=== PATIENT | female | born 1960 | race Caucasian/White ===

== ENCOUNTER → 2021-06-25 17:20 | Outpatient (CLI) | payer MEDICAID, SELFPAY ==
[2021-06-25 18:15] LABS: Basophils # 0.1 K/mm3 (0-0.2); Basophils % 0.6 % (0.1-2.0); Eosinophils # 0.2 K/mm3 (0.0-0.4); Eosinophils % 1.2 % (0.1-12.0); Hematocrit 45.1 % (37.0-47.0); Hemoglobin 14.7 g/dL (12.2-16.2); Lymphocytes # 2.2 K/mm3 (0.7-4.5); Lymphocytes % 16.2 % (10-50); Mean Corpuscular HGB Conc 32.6 g/dL (31.8-35.4); Mean Corpuscular Hemoglobin 31.3 pg (27.0-31.2); Mean Corpuscular Volume 96.1 fl (81-99); Mean Platelet Volume 9.1 fl (7.4-10.4); Monocytes # 0.5 K/mm3 (0.1-1.0); Monocytes % 3.8 % (1.7-9.3); Neutrophils # 10.7 K/mm3 (1.8-7.8); Neutrophils % 78.2 % (37.0-80.0); Platelet Count 351 K/mm3 (142-424); Red Cell Distribution Width 13.2 % (11.5-17.5); White Blood Count 13.7 K/mm3 (4.8-10.8)
[2021-06-25 18:22] LABS: Alanine Aminotransferase 14 U/L (12-78); Albumin Level 3.5 g/dl (3.5-5.0); Albumin/Globulin Ratio 1.1 (1.1-1.8); Alkaline Phosphatase 95 U/L (38-126); Anion Gap 10.3 mEq/L (5-15); Aspartate Amino Transferase 26 U/L (14-36); Bilirubin,Total 0.3 mg/dl (0.2-1.3); Blood Urea Nitrogen 18 mg/dl (7-17); Calcium 8.8 mg/dl (8.4-10.2); Carbon Dioxide 28 mmol/L (22.0-30.0); Chloride 103 mmol/L (98-107); Chol/HDL Ratio 2.3 (1-3.5); Cholesterol 120 mg/dl (140-200); Estimated Glomerular Filt Rate 102 ml/min (>60); GFR (African American) 123 ML/MIN (>60); Globulin 3.2 g/dL (1.3-3.2); Glucose 69 mg/dl (74-100); HDL Cholesterol 52 mg/dl (40-60); Potassium 4.3 mmoL/L (3.5-5.1); Sodium 137 mmol/L (136-145); Total Protein,Serum 6.7 g/dl (6.3-8.2); Triglycerides 143 mg/dl (30-150); VLDL Cholesterol 29 mg/dL (0-40)
[2021-06-25 18:33] LABS: Direct LDL Cholesterol 45.73 mg/dL (100-129)
[2021-06-25 18:39] LABS: Free T4 (Free Thyroxine) 0.91 ng/dl (0.78-2.19)
[2021-06-25 18:40] LABS: 25-OH Vitamin D, Total 20.1 ng/mL (30-100)
[2021-06-25 18:53] LABS: Thyroid Stimulating Hormone 1.34 uIU/mL (0.465-4.68)
[2021-06-25 19:22] LABS: Erythrocyte Sedimentation Rate 7 mm/hr (0-30)
== END ==
PROVIDERS: Visit Provider Emergency Medicine
DX: R53.83 Other fatigue (principal); E55.9 Vitamin D deficiency, unspecified; Z79.899 Other long term (current) drug therapy
CPT/HCPCS: 80053; 80061; 82306; 84439; 84443; 85025; 85651

== ENCOUNTER → 2023-04-16 12:51 | Outpatient (CLI) | payer MEDICAID, SELFPAY ==
[2023-04-16 12:17] LABS: Basophils % 0.6 % (0.1-2.0); Eosinophils # 0.3 K/mm3 (0.0-0.4); Eosinophils % 4.3 % (0.1-12.0); Hematocrit 44.2 % (37.0-47.0); Hemoglobin 13.7 g/dL (12.2-16.2); Lymphocytes # 1.7 K/mm3 (0.7-4.5); Lymphocytes % 23.5 % (10-50); Mean Corpuscular Hemoglobin 27.7 pg (27.0-31.2); Mean Corpuscular Volume 89.2 fl (81-99); Mean Platelet Volume 8.2 fl (7.4-10.4); Monocytes # 0.4 K/mm3 (0.1-1.0); Monocytes % 5.1 % (1.7-9.3); Neutrophils # 4.9 K/mm3 (1.8-7.8); Neutrophils % 66.5 % (37.0-80.0); Platelet Count 293 K/mm3 (142-424); Red Blood Count 4.95 M/mm3 (4.20-5.40); Red Cell Distribution Width 14.1 % (11.5-17.5); White Blood Count 7.3 K/mm3 (4.8-10.8)
[2023-04-16 12:27] LABS: Alanine Aminotransferase 20 U/L (12-78); Albumin Level 3.9 g/dl (3.5-5.0); Albumin/Globulin Ratio 1.1 (1.1-1.8); Alkaline Phosphatase 120 U/L (38-126); Anion Gap 9.9 mEq/L (5-15); Aspartate Amino Transferase 22 U/L (14-36); Blood Urea Nitrogen 25 mg/dl (7-17); Calcium 9.5 mg/dl (8.4-10.2); Carbon Dioxide 31 mmol/L (22.0-30.0); Chloride 107 mmol/L (98-107); Chol/HDL Ratio 2.3 (1-3.5); Cholesterol 195 mg/dl (140-200); Estimated Glomerular Filt Rate 85 ml/min (>60); GFR (African American) 103 ML/MIN (>60); Globulin 3.4 g/dL (1.3-3.2); Glucose 129 mg/dl (74-100); HDL Cholesterol 84 mg/dl (40-60); Potassium 3.9 mmoL/L (3.5-5.1); Sodium 144 mmol/L (136-145); Total Protein,Serum 7.3 g/dl (6.3-8.2); Triglycerides 106 mg/dl (30-150); VLDL Cholesterol 21 mg/dL (0-40)
[2023-04-16 12:30] LABS: Bilirubin,Total 0.1 mg/dl (0.2-1.3)
[2023-04-16 12:40] LABS: Direct LDL Cholesterol 92.75 mg/dL (100-129)
[2023-04-16 12:42] LABS: 25-OH Vitamin D, Total 29.3 ng/mL (30-100)
[2023-04-16 12:43] LABS: T4 (Thyroxine) 8.2 ug/dl (5.53-11.0)
[2023-04-16 12:47] LABS: Barbiturates Screen,Urine Positive ng/ml (<200)
[2023-04-16 12:48] LABS: Benzodiazepines Screen,Urine Negative ng/ml (<200)
[2023-04-16 12:49] LABS: Cannabinoid Screen,Urine Negative ng/ml (<50); Cocaine Screen,Urine Negative ng/ml (<300)
[2023-04-16 12:50] LABS: Methadone Screen,Urine Negative ng/ml (<300); Opiate Screen,Urine Negative ng/ml (<300)
[2023-04-16 12:54] LABS: Phencyclidine Screen,Urine Negative ng/ml (<25)
[2023-04-16 12:57] LABS: Thyroid Stimulating Hormone 1.45 uIU/mL (0.465-4.68)
[2023-04-16 13:01] LABS: Amphetamine/Metha Screen,Urine Negative ng/ml (<1000)
== END ==
PROVIDERS: PCP Emergency Medicine; Visit Provider Emergency Medicine
DX: E78.5 Hyperlipidemia, unspecified (principal); G62.9 Polyneuropathy, unspecified; E66.9 Obesity, unspecified; Z68.30 Body mass index [BMI] 30.0-30.9, adult; Z79.899 Other long term (current) drug therapy; E55.9 Vitamin D deficiency, unspecified
CPT/HCPCS: 80053; 80061; 80305; 82306; 84436; 84443; 85025

== ENCOUNTER 2025-09-05 15:51 | Outpatient (CLI) | payer MEDICAID, SELFPAY ==
--- OUTSIDE RECORDS SUMMARY | 2025-08-25 11:00 | XMS_ITS | Encounter Summary ---
Author Organization [facility] ([place], [place], [place], [place], [place]) Address [address] [place] [address] Care Team Providers Care Taxonomist Name Role Phone Brynn Carney APRN Primary Care Provider [phone] Reason for Referral * Consultation (Routine) - Authorized Specialty Diagnoses / Procedures Referred By Lisandro jennings Referred To Contact Diagnoses Colostomy present (HCC) Drug-induced constipation Brynn Carney APRN [address] [place] [address] Phone: tel: fax: Sarah, Provider Not In The System, [place] [address] Referral ID Status Reason Start Date Expiration Date Visits Requested Visits Authorized [id number] Authorized Specialty Services Required 08/25/2026 1 1 * Consultation (Routine) - Authorized Specialty Diagnoses / Procedures Referred By Lisandro jennings Referred To Contact Diagnoses 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) Tremors of nervous system Brynn Carney APRN [address] [place] [id number] Phone: tel: fax: Sarah, Provider Not In The System, [place] [address] Referral ID Status Reason Start Date Expiration Date Visits Requested Visits Authorized [id number] Authorized Specialty Services Required 5 08/25/2026 1 1 * Consultation (Routine) - Authorized Specialty Diagnoses / Procedures Referred By Lisandro jennings Referred To Contact Diagnoses Muscle spasms of both lower extremities Chronic bilateral back pain, unspecified back location Brynn Carney APRN [address] [place] [address] Phone: tel: fax: [address] [address] Phone: tel: Referral ID Status Reason Start Date Expiration Date Visits Requested Visits Authorized [id number] Authorized Specialty Services Required 5 08/25/2026 1 1 * Consultation (Routine) - Authorized Specialty Diagnoses / Procedures Referred By Lisandro jennings Referred To Contact Diagnoses Anxiety and depression H/O borderline personality disorder Brynn Carney APRN [address] [place] [address] Phone: tel: fax: [address] [place] [address] Phone: tel: Referral ID Status Reason Start Date Expiration Date Visits Requested Visits Authorized [id number] Authorized Specialty Services Required 5 08/25/2026 1 1 Reason for Visit * Reason Comments Establish Care Pt here to est care. Encounter Details Date Type Department Care Team (Late st Contact Info) Description 08/25/2025 11:00 AM EST Office Visit [facility] Primary [facility] - [address] [address] Brynn Carney APRN [address] [place] [address] Encounter to establish care (Primary Dx); Depression screening; Need for vaccination; Primary hypertension; Muscle spasms of both lower extremities; Chronic bilateral back pain, unspecified back location; Anxiety and depression; 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); Tremors of nervous system; Colostomy present ([facility]); Drug-induced constipation; H/O borderline personality disorder; Vitamin D deficiency; Diabetes mellitus screening; Thyroid disorder screen; Mixed hyperlipidemia; Restless leg syndrome; Gastroesophageal reflux disease, unspecified whether esophagitis present; Nausea; History of narcotic addiction ([facility]) Social History Tobacco Use Types Packs/Day Years Used Date Smoking Tobacco: Every Day Cigarettes Smokeless Tobacco: Never Alcohol Use Standard Drinks/Week Comments Not Currently 0 (1 standard drink = 0.6 oz pur e alcohol) [facility] - Mental Health Answer Date Recorde d Little interest or pleasure in doing things Evelina days 08/25/2025 Feeling down, depressed, or hopeless Several day s 08/25/2025 Feeling of Stress Not on file 08/25/2025 Family and Community Support Answer Jonnie e Recorded Help with Day to Day Activities Not on file 10/24/2023 Feeling Lonely or Isolated Not on file 10/24 Educational Attainment Answer Date Otoniel rded Speak language other than Burkinan at home Not on file 10/24/2023 Want help with school or training Not on file 10/24/2023 Substance Use Answer Date Recorded Used prescription meds for non-medical reasons N ot on file 10/24/2023 Used illegal drugs past 12 months Not on file 10/24/2023 Comments Unknown Sex and Gender Information Value Date Recorded Sex Assigned at Not on file Legal Sex Female 2:24 PM CDT Gender Identity Not on file Sexual Orientation Not on file documented as of this encounter Last Filed Vital Signs Vital Sign Reading Time Taken Comments Blood Pressure 143/85 08/25/2025 11:04 AM EST Pulse 80 08/25/2025 11:04 AM EST Temperature 36.7 C (98 F) 08/25/2025 11:04 AM EST Respiratory Rate - - Oxygen Saturation 98% 08/25/2025 11:04 AM EST Inhaled Oxygen Concentration - - Weight 71.5 kg (157 lb 9.6 oz) 08/25/2025 11:04 AM EST Height 170.2 cm (5' 7 ) 08/25/2025 11:04 AM EST Body Mass Index 24.68 08/25/2025 11:04 AM EST documented in this encounter Functional Status * Are you deaf or do you have serious difficulty hearing? Answer Date of Assessment Author No 04/22/2023 11:55 AM Rodriguez Momin RN * Are you blind or do you have serious difficulty seeing, even when wearing glasses? Answer Date of Assessment Author No 04/22/2023 11:55 AM Rodriguez Momin RN * Do you have serious difficulty walking or climbing stairs? Answer Date of Assessment Author Yes 04/22/2023 11:55 AM Rodriguez Momin RN * Do you have serious difficulty dressing or bathing? Answer Date of Assessment Author No 04/22/2023 11:55 AM Rodriguez Momin RN * Because of a physical, mental, or emotional condition, do you have serious difficulty doing errandsalone such as visiting the doctor? Answer Date of Assessment Author Yes 04/22/2023 11:55 AM Rodriguez Momin RN * Over the past 2 weeks, how often have you been bothered by any of the following problems? Question Answer Date of Assessment Author Little interest or pleasure in doing things Several days 08/25/2025 11:14 AM Kary Villareal Feeling down, depressed, or hopeless Several days 08/25/2025 11:14 AM Kary Villareal Patient Health Questionnaire-2 Score 2 08/25/2025 11:14 AM Mookie Villareal * Question Answer Date of Assessment Author Trouble falling or staying asleep, or sleeping too much Several days 08/25/2025 11:14 AM Kary Montaño Feeling tired or having little energy Several days 08/25/2025 11:14 AM Kary Villareal Poor appetite or overeating Several days 08/25/2025 11 :14 AM Kary Villareal Feeling bad about yourself - or that you are a failure or have let yourself or your family down Several days 08/25/2025 11:14 AM Kary Villareal Trouble concentrating on things, such as reading the newspaper or watching television Several days 08/25/2025 11:14 AM Kary Villareal Moving or speaking so slowly that other people could have noticed? Or the opposite - being so fidgety or restless that you have been moving around a lot more than usual. Several days 08/25/2025 11:14 AM Kary Lennon nd Thoughts that you would be better off or hurting yourself in some way Not at all 08/25/2025 11:14 AM Kimberly Villareal Patient Health Questionnaire-9 Score 8 08/25/2025 11:14 AM Mookie Villareal M documented as of this encounter Mental Status * Because of a physical, mental, or emotional condition, do you have serious difficulty concentrating, remembering, or making decisions? (5 years old or older) Answer Entry Date Author Yes 04/22/2023 11:55 AM CDT Rodriguez Horne RN documented in this encounter Progress Notes * Brynn Carney, LUMBER KILN OPERATOR - 08/25/2025 11:00 AM EST Subjective: Pam Mitchell is a 65 y.o. female. Chief Complaint Patient presents with Establish Care Pt here to est care. I have reviewed and/or updated the following: Tobacco Allergies Meds Problems Med Hx Surg Hx Fam Hx Patient presents today for establishment of care. Prior provider was Dr. Moris Gonzalez in [place]. PMH: HTN: takes medications. Home readings are in 140's. Denies chest pain edema shortness of breath. CVA: 2020. 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 Did not have endarterectomy. Started on Plavix at discharge. BL Partial peripheral vision loss, left frozen shoulder, and left hand contracture. Did complete PT for this. Did not help much. Uses gabapentin for shoulder pain. Muscle spasms: takes cyclobenzaprine three times a day. From chronic back pain from several years ago. Has DDD on MRI several years ago. Has not had surgical repair. Is managing symptoms. 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 Is on primidone. Has tremor in hands. Has progressed upward to head in last 6 months. Has not had any imaging. PCP thought it was progression of tremors. Has not had neurology follow since he stroke several years ago. Anxiety depression: Has been on lexapro in past. Denies SI or prior attempts. Personality disorder: is on seroquel for this. Colostomy: perorated bowel d/t severe constipation in January 2025. Is on stool softener. Uncertain if bowel was resected. Wants to have reversed. Asking for gI referral. Narcotic addiction: sober for several years. Was on suboxone. Has been off of it since January. Review of Systems A complete review of systems revealed no pertinent patient complaints except as noted in the history of present illness. Objective: Outpatient Medications Prior to Visit Medication Sig Dispense Refill clonazePAM (KlonoPIN) 0.25 MG disintegrating tablet Take 1 tablet (0.25 mg total) by mouth. gabapentin (NEURONTIN) 800 MG tablet Take 1 tablet (800 mg total) by mouth 3 (three) times daily. amLODIPine (NORVASC) 5 MG tablet Take 1 tablet (5 mg total) by mouth 2 (two) times daily. aspirin 81 MG EC tablet Take 1 tablet (81 mg total) by mouth daily. atorvastatin (LIPITOR) 40 MG tablet Take 1 tablet (40 mg total) by mouth daily. baclofen (LIORESAL) 10 MG tablet Take 1 tablet (10 mg total) by mouth 2 (two) times daily. clopidogreL (PLAVIX) 75 mg tablet Take 1 tablet (75 mg total) by mouth daily. gabapentin (NEURONTIN) 300 MG capsule Take 1 capsule (300 mg total) by mouth 2 (two) times daily. Max Daily Amount: 600 mg lamoTRIgine (LaMICtal) 25 MG tablet Take 1 tablet (25 mg total) by mouth daily. lisinopriL (ZESTRIL) 40 MG tablet Take 1 tablet (40 mg total) by mouth daily. ondansetron (ZOFRAN) 4 MG tablet Take 1 tablet (4 mg total) by mouth 3 (three) times daily as needed for Nausea. pantoprazole (PROTONIX) 40 MG tablet Take 1 tablet (40 mg total) by mouth daily. QUEtiapine (SEROquel) 25 MG tablet Take 1 tablet (25 mg total) by mouth. rOPINIRole (REQUIP) 0.25 MG tablet Take 1 tablet (0.25 mg total) by mouth daily. buprenorphine-naloxone (SUBOXONE) 8-[address] 2 tablets under the tongue daily. Max Daily Amount: 2 tablets (Patient not taking: Reported on 08/25/2025.) buPROPion (WELLBUTRIN XL) 150 MG 24 hr tablet Take 1 tablet (150 mg total) by mouth daily. (Patientnot taking: Reported on 08/25/2025.) famotidine (PEPCID) 20 MG tablet Take 20 mg by mouth 2 (two) times daily. (Patient not taking: Reported on 08/25/2025.) nicotine (NICODERM CQ) 21 mg/[address] 1 patch onto the skin daily. (Patient not taking: Reported on 08/25/2025.) primidone (MYSOLINE) 50 MG tablet Take 1 tablet (50 mg total) by mouth 2 (two) times daily. No facility-administered medications prior to visit. Vitals: 08/25/25 1104 BP: (!) 143/85 Pulse: 80 Temp: 98 ??F (36.7 ??C) SpO2: 98% Weight: 71.5 kg (157 lb 9.6 oz) Height: 1.702 m (5' 7 ) Body mass index is 24.68 kg/m??. Physical Exam Vitals reviewed. Constitutional: General: She is not in acute distress. Appearance: Normal appearance. She is obese. HENT: Head: Normocephalic and atraumatic. Mouth/Throat: Mouth: Mucous membranes are moist. Pharynx: Oropharynx is clear. Eyes: Pupils: Pupils are equal, round, and reactive to light. Cardiovascular: Rate and Rhythm: Normal rate and regular rhythm. Heart sounds: Normal heart sounds. Pulmonary: Effort: Pulmonary effort is normal. Breath sounds: Normal breath sounds. Musculoskeletal: Cervical back: Neck supple. Skin: General: Skin is warm and dry. Neurological: General: No focal deficit present. Mental Status: She is alert and oriented to person, place, and time. GCS: GCS eye subscore is 4. GCS verbal subscore is 5. GCS motor subscore is 6. Comments: Bilateral tremor noted to bilateral hands progressing upward through neck and head. Neck and head occurs at rest and occur with activity but not at rest. Right hand is contracted initially but was seen with limited range of motion in the shoulder residual from CVA. Psychiatric: Mood and Affect: Mood normal. Behavior: Behavior normal. Thought Content: Thought content normal. Judgment: Judgment normal. No results found for this visit on 08/25/25 (from the past 24 hours). Assessment: 1. Encounter to establish care 2. Depression screening 3. Need for vaccination 4. Primary hypertension 5. Muscle spasms of both lower extremities 6. Chronic bilateral back pain, unspecified back location 7. Anxiety and depression 8. 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 Tremors of nervous system 10. Colostomy present ([facility]) 11. Drug-induced constipation 12. H/O borderline personality disorder 13. Vitamin D deficiency 14. Diabetes mellitus screening 15. Thyroid disorder screen 16. Mixed hyperlipidemia 17. Restless leg syndrome 18. Gastroesophageal reflux disease, unspecified whether esophagitis present 19. Nausea 20. History of narcotic addiction ([facility]) Plan: Depression Screen: (PHQ9 > 10 Likely Major Depression, 5-9 = Mild depression, 10-14= Moderate depression, 15-19 Moderately severe depression, > 20 =severe depression) PHQ2 = Patient Health Questionnaire-2 Score: 2 PHQ9 = Patient Health Questionnaire-9 Score: 8 Plan Provider Interpretation: Positive. referral to mental health providerGreater than 5 minutes spent administering and evaluating the score of a standardized document for behavioral assessment. Diagnoses and all orders for this visit: Encounter to establish care Depression screening Need for vaccination - INFLUENZA(FLULAVAL,FLUZONE,FLUARIX)_0.5mL(6MOS+)TRI ([id number]) Primary hypertension - amLODIPine (NORVASC) 10 MG tablet; Take 1 tablet (10 mg total) by mouth daily. - CBC with platelet count + automated diff - Comprehensive metabolic panel - lisinopriL (ZESTRIL) 40 MG tablet; Take 1 tablet (40 mg total) by mouth daily. Muscle spasms of both lower extremities - Ambulatory referral to Pain Clinic; Future - cyclobenzaprine (AMRIX) 15 MG 24 hr capsule; Take 1 capsule (15 mg total) by mouth daily as needed for muscle spasms. Chronic bilateral back pain, unspecified back location - Ambulatory referral to Pain Clinic; Future Anxiety and depression - Ambulatory referral to Psychiatry; Future - escitalopram (LEXAPRO) 5 MG tablet; Take 1 tablet (5 mg total) by mouth daily for 7 days, THEN 2 tablets (10 mg total) daily for 53 days. 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) - Ambulatory referral to Neurology; Future - aspirin 81 MG EC tablet; Take 1 tablet (81 mg total) by mouth daily. - clopidogreL (PLAVIX) 75 mg tablet; Take 1 tablet (75 mg total) by mouth daily. Tremors of nervous system - Ambulatory referral to Neurology; Future - primidone (MYSOLINE) 50 MG tablet; Take 1 tablet (50 mg total) by mouth 2 (two) times daily. - rOPINIRole (REQUIP) 0.25 MG tablet; Take 1 tablet (0.25 mg total) by mouth daily. Colostomy present (HCC) - Ambulatory referral to Gastroenterology - DME: Drug-induced constipation - Ambulatory referral to Gastroenterology - DME: H/O borderline personality disorder - Ambulatory referral to Psychiatry; Future - lamoTRIgine (LaMICtal) 25 MG tablet; Take 1 tablet (25 mg total) by mouth daily. - QUEtiapine (SEROquel) 25 MG tablet; Take 1 tablet (25 mg total) by mouth nightly. Vitamin D deficiency - Vitamin D, 25-Hydroxy Diabetes mellitus screening - Hemoglobin A1c Thyroid disorder screen - T4, free - TSH Mixed hyperlipidemia - Lipid panel - atorvastatin (LIPITOR) 40 MG tablet; Take 1 tablet (40 mg total) by mouth daily. Restless leg syndrome - rOPINIRole (REQUIP) 0.25 MG tablet; Take 1 tablet (0.25 mg total) by mouth daily. Gastroesophageal reflux disease, unspecified whether esophagitis present - pantoprazole (PROTONIX) 40 MG tablet; Take 1 tablet (40 mg total) by mouth daily. Nausea - ondansetron (ZOFRAN) 4 MG tablet; Take 1 tablet (4 mg total) by mouth 3 (three) times daily as needed for nausea. History of narcotic addiction ([facility]) New Prescriptions CYCLOBENZAPRINE (AMRIX) 15 MG 24 HR CAPSULE Take 1 capsule (15 mg total) by mouth daily as needed for muscle spasms. ESCITALOPRAM (LEXAPRO) 5 MG TABLET Take 1 tablet (5 mg total) by mouth daily for 7 days, THEN 2 tablets (10 mg total) daily for 53 days. Discontinued Medications BACLOFEN (LIORESAL) 10 MG TABLET Take 1 tablet (10 mg total) by mouth 2 (two) times daily. BUPRENORPHINE-NALOXONE (SUBOXONE) 8-[address] 2 tablets under the tongue daily. Max Daily Amount: 2 tablets BUPROPION (WELLBUTRIN XL) 150 MG 24 HR TABLET Take 1 tablet (150 mg total) by mouth daily. FAMOTIDINE (PEPCID) 20 MG TABLET Take 20 mg by mouth 2 (two) times daily. GABAPENTIN (NEURONTIN) 300 MG CAPSULE Take 1 capsule (300 mg total) by mouth 2 (two) times daily. Max Daily Amount: 600 mg NICOTINE (NICODERM CQ) 21 MG/[address] 1 patch onto the skin daily. Modified Medications Modified Medication Previous Medication AMLODIPINE (NORVASC) 10 MG TABLET amLODIPine (NORVASC) 5 MG tablet Take 1 tablet (10 mg total) by mouth daily. Take 1 tablet (5 mg total) by mouth 2 (two) times daily. ASPIRIN 81 MG EC TABLET aspirin 81 MG EC tablet Take 1 tablet (81 mg total) by mouth daily. Take 1 tablet (81 mg total) by mouth daily. ATORVASTATIN (LIPITOR) 40 MG TABLET atorvastatin (LIPITOR) 40 MG tablet Take 1 tablet (40 mg total) by mouth daily. Take 1 tablet (40 mg total) by mouth daily. CLOPIDOGREL (PLAVIX) 75 MG TABLET clopidogreL (PLAVIX) 75 mg tablet Take 1 tablet (75 mg total) by mouth daily. Take 1 tablet (75 mg total) by mouth daily. LAMOTRIGINE (LAMICTAL) 25 MG TABLET lamoTRIgine (LaMICtal) 25 MG tablet Take 1 tablet (25 mg total) by mouth daily. Take 1 tablet (25 mg total) by mouth daily. LISINOPRIL (ZESTRIL) 40 MG TABLET lisinopriL (ZESTRIL) 40 MG tablet Take 1 tablet (40 mg total) by mouth daily. Take 1 tablet (40 mg total) by mouth daily. ONDANSETRON (ZOFRAN) 4 MG TABLET ondansetron (ZOFRAN) 4 MG tablet Take 1 tablet (4 mg total) by mouth 3 (three) times daily as needed for nausea. Take 1 tablet (4 mgtotal) by mouth 3 (three) times daily as needed for Nausea. PANTOPRAZOLE (PROTONIX) 40 MG TABLET pantoprazole (PROTONIX) 40 MG tablet Take 1 tablet (40 mg total) by mouth daily. Take 1 tablet (40 mg total) by mouth daily. PRIMIDONE (MYSOLINE) 50 MG TABLET primidone (MYSOLINE) 50 MG tablet Take 1 tablet (50 mg total) by mouth 2 (two) times daily. Take 1 tablet (50 mg total) by mouth 2 (two) times daily. QUETIAPINE (SEROQUEL) 25 MG TABLET QUEtiapine (SEROquel) 25 MG tablet Take 1 tablet (25 mg total) by mouth nightly. Take 1 tablet (25 mg total) by mouth. ROPINIROLE (REQUIP) 0.25 MG TABLET rOPINIRole (REQUIP) 0.25 MG tablet Take 1 tablet (0.25 mg total) by mouth daily. Take 1 tablet (0.25 mg total) by mouth daily. Discussion/Summary: Will obtain baseline labs. Further plan pending results. For hypertension will increase dose of amlodipine did educate on potential side effects of ankle swelling. If this occurs she will let me know and we can change to mild diuretic. She agrees to monitor blood pressure at home and bring log back with her to her next appointment. Referral to GI to discuss colostomy takedown. Referral to neurology for tremors CVA follow-up. Referral to psychiatry for borderline personality disorder and bipolar. Will start on Lexapro for positive depression screen. Educated on potential side effect of suicidal ideations if this occurs she is to call 911 or [phone] or report to local emergency department. Continue to with sobriety for narcotic addiction. If she finds her still struggling she will let meknow and I can referral to resources. Medication refills provided. Advised patient I cannot prescribe controlled substance since I do nothave my [place] license. Referral to pain management to help with chronic pain and gabapentin refills. Patient agrees to flu vaccine in office today. VIS provided and common adverse reactions discussed. Return in about 4 weeks (around 09/22/2025) for Next Scheduled Follow Up. IRATORY ASSISTANT documented in this encounter Miscellaneous Notes * Result Encounter Note - Douglas Baca - 08/25/2025 11:00 AM EST verified Patient informed of results during clinic encounter/telephone encounter. IRATORY ASSISTANT documented in this encounter Plan of Treatment Upcoming Encounters Date Type Department Care Team (Late st Contact Info) Description 09/26/2025 2:30 PM EST Office Visit [facility] - [place] [address] [place] [address] Brynn Carney, LUMBER KILN OPERATOR [address] [place] [address] Scheduled Referrals Name Type Priority Associated Diagnoses Order Schedule Ambulatory referral to Psychiatry Outpatient Referral Routine Anxiety and depression H/O borderline personality disorder Expected: 08/25/2025, Expires: 08/25/2026 Ambulatory referral to Pain Clinic Outpatient Referral Routine Muscle spasms of both lower extremities Chronic bilateral back pain, unspecified back location Expected: 08/25/2025, Expires: 08/25/2026 Ambulatory referral to Neurology Outpatient Referral Routine 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) Tremors of nervous system Expected: 08/25/2025, Expires: 08/25/2026 Ambulatory referral to Gastroenterology Outpatient Referral Routine Colostomy present (HCC) Drug-induced constipation Ordered: 08/25/2025 documented as of this encounter Procedures Procedure Name Priority Date/Time Associated Diagnosis Comments VITAMIN D, 25-HYDROXY Routine 08/25/2025 12:20 PM EST Vitamin D deficiency CBC W/PLT COUNT & AUTO DIFFERENTIAL Routine 08/25/2025 12:20 PM EST Primary hypertension TSH Routine 08/25/2025 12:20 PM EST Thyroid disorder screen T4, FREE Routine 08/25/2025 12:20 PM EST Thyroid disorder screen HEMOGLOBIN A1C Routine 08/25/2025 12:20 PM EST Diabetes mellitus screening LIPID PANEL Routine 08/25/2025 12:20 PM EST Mixed hyperlipidemia COMPREHENSIVE METABOLIC PANEL Routine 08/25/2025 12:20 PM EST Primary hypertension documented in this encounter Results * (ABNORMAL) Vitamin D, 25-Hydroxy (08/25/2025 12:20 PM EST) Vitamin D, 25-Hydroxy 23.5(L) 30.0 - 100.0 ng/mL [facility] Comment: Vitamin D deficiency has been defined by the [place] of Medicine and an Endocrine Society practice guideline as a level of serum 25-OH vitamin D less than 20 ng/mL (1,2). The Endocrine Society went on to further define vitamin D insufficiency as a level between 21 and 29 ng/mL (2). 1. IOM ([place] of [employer]). 2010. Dietary reference intakes for calcium and D. [place]: The National AcademAirPR Press. 2. Liban MF, Freddie NC, Francia CASTILLO, et al. Evaluation, treatment, and prevention of vitamin D deficiency: an Endocrine Society clinical practice guideline. JCEM. 2010; 96(7):1911-30. Blood 08/25/2025 12:2 0 PM EST 08/25/2025 Narrative [facility] - 08/26/2025 7:07 AM EST Performed at: - [facility] [address] [id number] Equipment Operat0R: Cedric Coughlin PhD, Phone: [phone] Brynn Carney APRN LAB BLOOD ORDERABLES Final Re sult [facility] * Lipid panel (08/25/2025 12:20 PM EST) Cholesterol, Total 176 100 - 199 mg/dL [facility] Triglycerides 90 0 - 149 mg/dL [facility] HDL Cholesterol 65 >39 mg/dL [facility] VLDL Cholesterol [place] 16 5 - 40 mg/dL [facility] LDL Calculated 95 0 - 99 mg/dL [facility] Blood 08/25/2025 12:2 0 PM EST 08/25/2025 Narrative [facility] - 08/26/2025 7:07 AM EST Performed at: - [facility] [address] [id number] Equipment Operat0R: Cedric Coughlin PhD, Phone: [phone] Brynn Giraldolux LUMBER KILN OPERATOR LAB BLOOD ORDERABLES Final Re sult [facility] * Comprehensive metabolic panel (08/25/2025 12:20 PM EST) Glucose, Serum 83 70 - 99 mg/dL [facility] BUN 22 8 - 27 mg/dL [facility] Creatinine, Serum 0.81 0.57 - 1.00 mg/dL [facility] EGFR 81 >59 mL/min/1.73 [facility] BUN/Creatinine Ratio 27 12 - 28 [facility] Sodium, Serum 142 134 - 144 mmol/L [facility] Potassium, Serum 3.8 3.5 - 5.2 mmol/L [facility] Chloride, Serum 103 96 - 106 mmol/L [facility] Carbon Dioxide, Total 22 20 - 29 mmol/L [facility] Calcium, Serum 9.6 8.7 - 10.3 mg/dL [facility] Protein, Total, Serum 7.8 6.0 - 8.5 g/dL [facility] Albumin, Serum 4.3 3.9 - 4.9 g/dL [facility] Globulin, Total 3.5 1.5 - 4.5 g/dL [facility] Bilirubin, Total 0.2 0.0 - 1.2 mg/dL [facility] Alkaline Phosphatase, S 129 49 - 135 IU/L [facility] AST (SGOT) 14 0 - 40 IU/L [facility] ALT (SGPT) 10 0 - 32 IU/L [facility] Blood 08/25/2025 12:2 0 PM EST 08/25/2025 Narrative [facility] - 08/26/2025 7:07 AM EST Performed at: 01 - [facility] [address] [id number] Equipment Operat0R: Cedric Coughlin PhD, Phone: [phone] Brynn Giraldolux [facility] LAB BLOOD ORDERABLES Final Re sult [facility] * CBC with platelet count + automated diff (08/25/2025 12:20 PM EST) WBC 9.2 3.4 - 10.8 x10E3/uL [facility] RBC 4.82 3.77 - 5.28 x10E6/uL [facility] Hemoglobin 14.9 11.1 - 15.9 g/dL [facility] Hematocrit 46.2 34.0 - 46.6 % [facility] MCV 96 79 - 97 fL [facility] MCH 30.9 26.6 - 33.0 pg [facility] MCHC 32.3 31.5 - 35.7 g/dL [facility] RDW 11.9 11.7 - 15.4 % [facility] Platelets 362 150 - 450 x10E3/uL [facility] % Neutros 75 Not Estab. % [facility] % Lymphs 16 Not Estab. % [facility] % Monos 6 Not Estab. % [facility] % Eos 1 Not Estab. % [facility] % Baso 1 Not Estab. % [facility] # Neutros 7.0 1.4 - 7.0 x10E3/uL [facility] # Lymphs 1.5 0.7 - 3.1 x10E3/uL [facility] # Monos 0.5 0.1 - 0.9 x10E3/uL [facility] # Eos 0.1 0.0 - 0.4 x10E3/uL [facility] Baso (Absolute) 0.1 0.0 - 0.2 x10E3/uL [facility] % Immature Grans 1 Not Estab. % [facility] # Immature Grans 0.1 0.0 - 0.1 x10E3/uL [facility] Blood 08/25/2025 12:2 0 PM EST 08/25/2025 Narrative [facility] - 08/26/2025 7:07 AM EST Performed at: 01 - [facility] [address] [id number] Equipment Operat0R: Cedric Coughlin PhD, Phone: [phone] us Brynn Carney LUMBER KILN OPERATOR LAB BLOOD ORDERABLES Final Re sult [facility] * TSH (08/25/2025 12:20 PM EST) Pathologist [facility] TSH 0.726 0.450 - 4.500 uIU/mL [facility] Blood 08/25/2025 12:2 0 PM EST 08/25/2025 Narrative [facility] - 08/26/2025 7:07 AM EST Performed at: [facility] [id number] Equipment Operat0R: Cedric Coughlin PhD, Phone: [phone] Brynn Carney APRN LAB BLOOD ORDERABLES Final Re sult [facility] * T4, free (08/25/2025 12:20 PM EST) T4,Free(Direct) 1.46 0.82 - 1.77 ng/dL [facility] Thyroxine (T4) 10.1 4.5 - 12.0 ug/dL [facility] Blood 08/25/2025 12:2 0 PM EST 08/25/2025 Narrative [facility] - 08/26/2025 7:07 AM EST Performed at: [facility] [id number] Equipment Operat0R: Cedric Coughlin PhD, Phone: [phone] Brynn Carney APRN LAB BLOOD ORDERABLES Final Re sult Performing Organization Address [facility] Co de Phone Number [facility] * Hemoglobin A1c (08/25/2025 12:20 PM EST) Hemoglobin A1c 5.3 4.8 - 5.6 % [facility] Comment: Prediabetes: 5.7 - 6.4 Diabetes: >6.4 Glycemic control for adults with diabetes: <7.0 Blood 08/25/2025 12:2 0 PM EST 08/25/2025 Narrative [facility] - 08/26/2025 7:07 AM EST Performed at: [address] [id number] Equipment Operat0R: Cedric Coughlin PhD, Phone: [phone] Brynn Carney APRN LAB BLOOD ORDERABLES Final Re sult [facility] documented in this encounter Visit Diagnoses Diagnosis Encounter to establish care- Primary Depression screening Need for vaccination Need for prophylactic vaccination and inoculation against unspecified single disease Primary hypertension Unspecified essential hypertension Muscle spasms of both lower extremities Chronic bilateral back pain, unspecified back location Anxiety and depression 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) Tremors of nervous system Colostomy present (HCC) Drug-induced constipation Other constipation H/O borderline personality disorder Vitamin D deficiency Unspecified vitamin D deficiency Diabetes mellitus screening Screening for diabetes mellitus Thyroid disorder screen Screening for thyroid disorder Mixed hyperlipidemia Restless leg syndrome Restless legs syndrome (RLS) Gastroesophageal reflux disease, unspecified whether esophagitis present Nausea Nausea alone History of narcotic addiction (HCC) documented in this encounter Care Teams Taxonomist Relationship Specialty Start Date End Date Brynn Carney APRN [address] [place] [address] PCP - General Primary Care 08/25/25 documented as of this encounter
[2025-09-06 10:14] LABS: Hematocrit 49.5 % (37.0-47.0); Hemoglobin 14.9 g/dL (12.2-16.2); Immature Granulocytes % 0.3 %; Mean Corpuscular HGB Conc 30.1 g/dL (31.8-35.4); Mean Corpuscular Hemoglobin 30.3 pg (27.0-31.2); Mean Corpuscular Volume 100.8 fl (81-99); Nucleated Red Blood Cells % 0 %; Platelet Count 313 K/mm3 (142-424); Red Blood Count 4.91 M/mm3 (4.20-5.40); Red Cell Distribution Width-SD 48.0 fL; White Blood Count 9.8 K/mm3 (4.8-10.8)
[2025-09-06 10:42] LABS: Albumin Level 4.6 g/dl (3.5-5.0); Chloride 106 mmol/L (98-107); Potassium 4.0 mmoL/L (3.5-5.1); Sodium 147 mmol/L (136-145)
[2025-09-06 10:44] LABS: Alanine Aminotransferase 23 U/L (12-78); Albumin/Globulin Ratio 1.2 (1.1-1.8); Anion Gap 17.0 mEq/L (5-15); Aspartate Amino Transferase 25 U/L (14-36); Blood Urea Nitrogen 20 mg/dl (7-17); Carbon Dioxide 28 mmol/L (22.0-30.0); Creatinine,Serum 0.70 mg/dl (0.52-1.04); Estimated Glomerular Filt Rate 84 ml/min (>60); GFR (African American) 102 ML/MIN (>60); Globulin 3.9 g/dL (1.3-3.2); Total Protein,Serum 8.5 g/dl (6.3-8.2)
[2025-09-06 10:45] LABS: Alkaline Phosphatase 137 U/L (38-126); Bilirubin,Total 0.3 mg/dl (0.2-1.3); Calcium 9.7 mg/dl (8.4-10.2); Cholesterol 199 mg/dl (140-200); Glucose 76 mg/dl (74-100); HDL Cholesterol 82 mg/dl (40-60); Triglycerides 84 mg/dl (30-150)
[2025-09-06 11:02] LABS: Free T4 (Free Thyroxine) 1.26 ng/dl (0.78-2.19)
[2025-09-06 11:16] LABS: Thyroid Stimulating Hormone 0.62 uIU/mL (0.465-4.68)
--- OUTSIDE RECORDS SUMMARY | 2025-09-06 12:24 | XMS_ITS | Clinical Summary ---
Author Organization [facility] Address [address] [place] [address] Care Team Providers Care Pearl Glue Operator Name Role Phone Unavailable Primary Care Provider Unavailabl e Allergies Active Allergy Reactions Criticality Noted Date Comments Erythromycin Rash Low 10/10/2022 Morphine Itching Medium 10/10/2022 Tetracycline Rash Low 10/10/2022 Medications carboxymethylce llulose PF (Refresh Plus) 0.5 % ophthalmic solution Administer 1 drop into the left eye if needed for dry eyes. 70 each Active Social History Tobacco Use Types Packs/Day Years Used Date Smoking Tobacco: Never Assessed Comments Unknown Sex and Gender Information Value Date Recorded Sex Assigned at Not on file Legal Sex Female 8:42 PM EDT Gender Identity Not on file Sexual Orientation Not on file Last Filed Vital Signs Vital Sign Reading Time Taken Comments Blood Pressure 168/87 10/10/2022 5:15 PM EST Pulse 62 10/10/2022 5:15 PM EST Temperature 36.5 C (97.7 F) 10/10/2022 2:00 PM EST Respiratory Rate 18 10/10/2022 5:15 PM EST Oxygen Saturation 96% 10/10/2022 5:15 PM EST Inhaled Oxygen Concentration - - Weight - - Height - - Body Mass Index - - Plan of Treatment Health Maintenance Due Date Last Done Comments [facility]-Depression Screening 1961 [facility]-HIV Screening 1961 [facility]-Hepatitis C Screening 1961 [facility]-Infant/Child/Adol SDOH Screenings 1961 [facility]- SDOH Screenings 1979 [facility]-Adult SDOH Screenings 1979 [facility]-Pap Smear 1982 [facility]-Cervical Cancer Screening 1991 [facility]-HPV/Cotest 1991 CT Colonography 2006 Colonoscopy 2006 FIT-DNA 2006 FIT 2006 FOBT 2006 Sigmoidoscopy 2006 [facility]-Colorectal Cancer Screening 2006 [facility]-Breast Cancer Screening 2011 [facility]-Zoster Vaccines (1 of 2) 2011 [id number] Vaccine (3 - 2024- season) 2025 12/17/2021, 01/26/2021 [facility]-Influenza Vaccine (#1) 06/06/202508/31, 01/28/2022, 07/17/2018, Additional history exists [facility]-DTaP,Tdap,and Td Vaccines (2 - Td or Tdap) 10/10/2032 10/10/2022 [facility]-RSV Vaccine: 60+ Years or (1 - 1-dose 75+ series) 02/27/2036 [facility]-Pneumococcal Vaccine: 50+ Years Completed 01/28/2022 HPV Vaccines Aged Out No longer eligi ble based on patient's age to complete this topic [facility]-HIB Vaccines Aged Out No longer e ligible based on patient's age to complete this topic [facility]-Hepatitis A Vaccines Aged Out No longer eligible based on patient's age to complete this topic [facility]-IPV Vaccines Aged Out No longer e ligible based on patient's age to complete this topic [facility]-Rotavirus Vaccines Aged Out No lo nger eligible based on patient's age to complete this topic Insurance [employer] [id number] [id number]
--- OUTSIDE RECORDS SUMMARY | 2025-09-06 12:24 | XMS_ITS | Encounter Summary ---
Author Organization Healthcare Address [address] [place] [address] Care Team Providers Care Bird Cage Assembler Name Role Phone Unavailable Primary Care Provider Unavailabl e Encounter Details Date Type Department Care Team (Late st Contact Info) Description 10/10/2022 Ophth Exam [facility] [address] [place] [address] Binu Núñez MD [address] [place] [address] Social History Tobacco Use Types Packs/Day Years Used Date Smoking Tobacco: Never Assessed Comments Unknown Sex and Gender Information Value Date Recorded Sex Assigned at Not on file Legal Sex Female 8:42 PM EDT Gender Identity Not on file Sexual Orientation Not on file COVID-19 Exposure Response Date Recorded In the last 10 days, have yo u been in contact with someone who was confirmed or suspected to have Coronavirus/COVID-19? No / Unsure 10/10/2022 1:58 PM EST documented as of this encounter Functional Status * Calculated C-SSRS Risk Score (Lifetime/Recent) Answer Date of Assessment Author No Risk Indicated 10/10/2022 2:04 PM EST Michell Melendez RN * Question Answer Date of Assessment Author 1. Wish to be (Past 1 Month) No 023 2:04 PM Michell Guerrero RN 2. Non-Specific Active Suici mounika Thoughts (Past 1 Month) No 10/10/2022 2:04 PM EST Herminia Melendez RN 6. Suicidal Behavior (Lifetime) No 2:04 PM Michell Guerrero RN documented as of this encounter Plan of Treatment Not on file documented as of this encounter Visit Diagnoses Not on filedocumented in this encounter
--- OUTSIDE RECORDS SUMMARY | 2025-09-06 12:24 | XMS_ITS | Encounter Summary ---
Author Organization [employer] ([place], [place], [place], [place], [place]) Address [address] [place] [address] Care Team Providers Care Service Writer Name Role Phone Brynn Carney APRN Primary Care Provider [phone] Reason for Visit * Reason Onset Date Comments Appointment 08/26/2025 Encounter Details Date Type Department Care Team (Late st Contact Info) Description 08/26/2025 Telephone [facility] - [address] [address] Brynn Carney APRN [address] [place] [address] Appointment Social History Tobacco Use Types Packs/Day Years Used Date Smoking Tobacco: Every Day Cigarettes Smokeless Tobacco: Never Alcohol Use Standard Drinks/Week Comments Not Currently 0 (1 standard drink = 0.6 oz pur e alcohol) [facility] - Mental Health Answer Date Recorde d Little interest or pleasure in doing things Evelina ral days 08/25/2025 Feeling down, depressed, or hopeless Several day s 08/25/2025 Feeling of Stress Not on file 08/25/2025 Family and Community Support Answer Jonnie e Recorded Help with Day to Day Activities Not on file 10/24/2023 Feeling Lonely or Isolated Not on file 10/24 Educational Attainment Answer Date Otoniel rded Speak language other than Cypriot at home Not on file 10/24/2023 Want [...] on file documented as of this encounter Functional Status * Are you [...] Yes 04/22/2023 11:55 AM Rodriguez Momin RN documented as of this encounter Mental Status * Because of a physical, mental, or emotional condition, do you have serious difficulty concentrating, remembering, or making decisions? (5 years old or older) Answer Entry Date Author Yes 04/22/2023 11:55 AM Rodriguez Momin RN documented in this encounter Miscellaneous Notes * Telephone Encounter - Alexandra Landry - 08/26/2025 3:10 PM EST Faxed order to [employer] telephone [phone]/fax [phone] WARE APPLICATION TESTER documented in this encounter Plan of Treatment Upcoming Encounters Date Type Department Care Team (Late st Contact Info) Description 09/26/2025 2:30 PM EST Office Visit [facility] [place] [address] [place] [address] Brynn Carney, BRUSHER AND SHEARER [address] [place] [address] documented as of this encounter Visit Diagnoses Not on filedocumented in this encounter Care Teams Service Writer Relationship Specialty Start Date End Date Brynn Carney APRN [address] [place] [address] PCP - General Primary Care 08/25/25 documented as of this encounter
--- OUTSIDE RECORDS SUMMARY | 2025-09-06 12:24 | XMS_ITS | Clinical Summary ---
Author Organization [facility] Address [address] [place] [address] Care Team Providers Care Pipe Cleaning Machine Operator Name Role Phone Kavon Chi MD Primary Care Provider [phone] Allergies Active Allergy Reactions Criticality Noted Date Comments Azithromycin Unknown - High Severity 10/10/2020 Morphine Rash Low 07/02/2022 Morphine And Codeine Rash Low 01/07/2018 Sulfa Antibiotics Rash Low 01/07/2018 Tetracyclines & Related Unknown - High Severity 10/10/2020 Medications atorvastatin (LIPITOR) 80 MG tablet Take 1 tablet by mouth Every Night. 10/15/2020 Active famotidine (PEPCID) 20 MG tablet Take 1 tablet by mouth 2 (Two) Times a Day. 60 tablet 1 08/02/2022 Active clopidogrel (PLAVIX) 75 MG tablet Take 1 tablet by mouth Daily. 30 tablet 2 03/28/2023 Active primidone (MYSOLINE) 50 MG tablet Take 1 tablet by mouth 3 (Three) Times a Day. Active gabapentin (NEURONTIN) 300 MG capsule Take 1 capsule by mouth 2 (Two) Times a Day. Active buPROPion XL (WELLBUTRIN XL) 150 MG 24 hr tablet Take 1 tablet by mouth Every Morning. Active aspirin 81 MG chewable tablet Chew 1 tablet Daily. 30 tablet 1 05/05/2023 4:01 PM EDT 05/06/2023 Active midodrine (PROAMATINE) 10 MG tablet Take 1 tablet by mouth 3 (Three) Times a Day Before Meals. 90 tablet 1 05/05/2023 4:01 PM EDT 05/05/2023 Active nicotine (NICODERM CQ) 21 MG/24HR patch Place 1 patch on the skin as directed by provider Daily. 30 patch 1 05/05/2023 4:01 PM EDT 05/06/2023 Active QUEtiapine fumarate ER (SEROquel XR) 50 MG tablet sustained-relea se 24 hour tablet Take 1 tablet by mouth Every Night. 30 each 1 05/15/2023 4:49 PM EDT 05/05/2023 Active saccharomyces boulardii (FLORASTOR) 250 MG capsule Take 2 capsules by mouth 2 (Two) Times a Day. 30 capsule 1 05/05/2023 Active lamoTRIgine (LaMICtal) 25 MG tablet Take 1 tablet by mouth Daily. 30 tablet 1 05/05/2023 Active Active Problems Problem Noted Date Diagnosed Date Right arm cellulitis 04/29/2023 CVA (cerebral vascular accident) 04/26/2023 Hemiplegia and hemiparesis f ollowing cerebral infarction affecting left dominant side 11/18/2022 Assessment & Plan (11/18/2022 9:27 AM EST): Acute CVA 10/10/2020; atheroembolic from occluded right internal carotid artery, with involvement of right temporal, parietal, and occipital lobes, along with the finding of right basal ganglia and thalamic infarctions. Transient dysarthria, dysphagia, left hemiparesis. Now apparent resolution of dysarthria and dysphagia, marked improvement of left hemiparesis, residual left sided neglect, and left upper extremity tremors. Seen by neurology, Dr. Wang however she has relocated Plan: 1. Risk factor modification emphasized. Patient has approximately [id number] history of smoking 2. Aspirin 325 mg daily to be continued 3. Plavix 75 mg daily to be continued 4. Referral to hinduism neurology to establish care due to relocation of prior neurology Dr. Wang Dyslipidemia 10/22/2022 Assessment & Plan (10/22/2022 3:40 PM EST): Continue atorvastatin 80 mg nightly Will check lipid panel next visit. Bipolar disorder, current episode mixed, moderat e 10/22/2022 Assessment & Plan (10/22/2022 3:43 PM EST): Her biggest concern today is her mental health. She tells me she has previously been diagnosed with bipolar disorder, however there is no mention of this in her old charts from retired PCP Dr. Mehdi Vasquez. She is currently utilizing Lexapro 20 mg daily without control of her anxiety and depression symptoms. She has feelings of hopelessness given her current living situation and the fact that she has no money, all she wants to do is sit and cry. She tells me the only medication that has ever really controlled her mood is lamictal. She denies homicidal or suicidal thoughts. She has not received psychiatric care in several years, but clearly would benefit at this time. -Continue Lexapro 20 -Refer to psychiatry AIS R Temporo-parietal area 10/10/2020 Essential hypertension 10/10/2020 Assessment & Plan (10/22/2022 3:39 PM EST): Last time she was seen in our office which was 16 months ago her lisinopril had been discontinued 1 month prior because of hypotension, on initial follow up BP had stayed well controlled. Today BP is elevated 136/84. Given her current living situation at the [facility] [employer] she does not have access to regular BP monitoring. She denies getting regular headaches, dizziness, chest pain or shortness of breath. -Continue to monitor for now Gastroesophageal reflux dise ase with esophagitis without hemorrhage 10/10/2020 ICAO (internal carotid artery occlusion), right 10/10/2020 Tobacco abuse 10/10/2020 Assessment & Plan (10/22/2022 3:36 PM EST): She continues half pack per day smoking habit for the last 15 years. Discussed need for cessation particularly in regards to her stroke history and elevated blood pressure. Resolved Problems Problem Noted Date Diagnosed Date Resolved Date ROSI (acute kidney injury) 04/29/2023 Depression 10/22/2022 10/22/2022 Acute ischemic stroke 10/11/20202022 Assessment & Plan (10/22/2022 3:42 PM EST): Acute CVA 10/10/2020; atheroembolic from occluded right internal carotid artery, with involvement of right temporal, parietal, and occipital lobes, along with the finding of right basal ganglia and thalamic infarctions. Transient dysarthria, dysphagia, left hemiparesis. Now apparent resolution of dysarthria and dysphagia, marked improvement of left hemiparesis, residual left sided neglect, and left upper extremity tremors. Seen by neurology, Dr. Wang however she has relocated Plan: 1. Risk factor modification emphasized. Patient has approximately 98-[id number] history of smoking 2. Aspirin 325 mg daily to be continued 3. Plavix 75 mg daily to be continued 4. Referral to hinduism neurology to establish care due to relocation of prior neurology Dr. Wang Immunizations Immunization Administration Dates Next Due Fluzone (or Fluarix & Flulav al for VFC) >6mos 08/31/2022,01/28/2022,07/17/2018,2016 Family History Medical History Relation Name Comments Cancer Father Diabetes Father Heart disease Father Stroke Father Heart disease Mother Relation Name Status Comments Father Mother Social History Tobacco Use Types Packs/Day Years Used Date Smoking Tobacco: Every Day Cigarettes 0.5 15 Smokeless Tobacco: Never Tobacco Cessation:Ready to Q uit: Not Asked; Counseling Given: Not Answered Alcohol Use Standard Drinks/Week Comments No 0 (1 standard drink = 0.6 oz pur e alcohol) [facility]-C Answer Date Recorded Q1: How often do you have a drink containing alcohol? Never 04/26/2023 Q2: How many drinks containi ng alcohol do you have on a typical day when you are drinking? Patient does not drink Q3: How often do you have si x or more drinks on one occasion? Never 04/26/2023 PHQ-2 Answer Date Recorded Retired PHQ-9: Brief Depression Severity Measure Score 10 10/18/2022 Abuse Screen Answer Date Recorded Unsafe at Home or Work/School Not on file Feels Threatened by Someone? Not on file 10/2023 Does Anyone Keep You from Co ntacting Others or Doint Things Outside the Home? Not on file 05/06/2024 Physical Sign of Abuse Present Not on file 0 05/06/2024 Housing Stability Answer Date Recorded Current Living Arrangements Not on file 10/2023 Potentially Unsafe Housing Conditions Not on dottie e 05/06/2024 Family and Community Support Answer Jonnie e Recorded Help with Day-to-Day Activities Not on file 07/14/2023 Lonely or Isolated Not on file 07/14/2023 Employment Answer Date Recorded Do you want help finding or keeping work or a bear b? Not on file 07/14/2023 Disabilities Answer Date Recorded Concentrating, Remembering, or Making Decisions Difficulty Not on file 05/06/2024 Doing Errands Independently Difficulty Not on fi le 05/06/2024 Education Answer Date Recorded Help with school or training? Not on file Preferred Language Not on file 07/14/2023 PHQ-2 Answer Date Recorded Retired PHQ-9: Brief Depression Severity Measure Score 10 10/18/2022 Comments No Sex and Gender Information Value Date Recorded Sex Assigned at Not on file Legal Sex Female 10:31 AM EDT Gender Identity Not on file Sexual Orientation Not on file Last Filed Vital Signs Vital Sign Reading Time Taken Comments Blood Pressure 107/67 05/05/2023 3:36 AM EDT Pulse 65 05/05/2023 6:00 AM EDT Temperature 36.4 C (97.6 F) 05/05/2023 3:36 AM EDT Respiratory Rate 20 05/05/2023 3:36 AM EDT Oxygen Saturation 95% 05/05/2023 4:00 AM EDT Inhaled Oxygen Concentration - - Weight 83.5 kg (184 lb) 04/30/2023 12:00 PM EDT Height 170.2 cm (5' 7 ) 04/30/2023 12:00 PM EDT Body Mass Index 28.82 04/30/2023 12:00 PM EDT Plan of Treatment Health Maintenance Due Date Last Done Comments Annual Gynecologic Pelvic an d Breast Exam 1961 MAMMOGRAM 2001 COLOGUARD 2006 COLON CANCER SCREENING 5 YEA R SIGMOIDOSCOPY 2006 COLONOSCOPY [address]CER SCREENING [address] CT COLONOGRAPHY 2006 FECAL OCCULT BLOOD TEST 2006 FIT Testing (1 year) 2006 ZOSTER VACCINE (1 of 2) 2011 ANNUAL PHYSICAL 01/07/2018 HEPATITIS C SCREENING 01/07/2018 INFLUENZA VACCINE 05/06/2025 08/31/2022, , 07/17/2018, Additional history exists TDAP/TD VACCINES (2 - Td or Tdap) 10/10/2032 023 Pneumococcal Vaccine 50+ Completed 01/28/2022 Procedures Procedure Name Priority Date/Time Associated Diagnosis Comments SCANNED - LABS 08/25/2025 from Last 3 Months Results * LABS SCANNED (08/25/2025) [facility] Onbase LAB BLOOD ORDERABLES Final Re sult from Last 3 Months Additional Health Concerns Infection Onset Date 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 04/29/2023 Insurance Advance Directives * CPR (Attempt to Resuscitate) (Latest Code Status on File) Date Activated Date Inactivated Comments 04/26/2023 9:21 AM 05/05/2023 7:13 PM Question Answer Comments Code Status (Patient has no pulse and is not breathing): CPR (Attempt to Resuscitate) Medical Interventions (Patie nt has pulse or is breathing): Full Support Level Of Support Discussed With: Patient Release to patient: Routine Release * CPR (Attempt to Resuscitate) Date Activated Date Inactivated Comments 10/10/2020 11:27 AM 10/15/2020 3:56 PM Question Answer Comments Code Status (Patient has no pulse and is not breathing): CPR (Attempt to Resuscitate) Medical Interventions (Patie nt has pulse or is breathing): Full Care Teams Pipe Cleaning Machine Operator Relationship Specialty Start Date End Date Kavon Chi MD [address] [facility] [address] ATTN: TAURUS RICARDO, [place]ARC[place] [address] PCP - General Emergency Medicine 04/26/23
--- OUTSIDE RECORDS SUMMARY | 2025-09-06 12:25 | XMS_ITS | Encounter Summary ---
Author Organization [facility] Address [address] [place] [address] Care Team Providers Care Mining Professionals Name Role Phone Kavon Chi MD Primary Care Provider [phone] Reason for Visit * Reason Onset Date Comments HENRY REFILL 04/02/2023 Encounter Details Date Type Department Care Team (Late st Contact Info) Description 04/02/2023 Telephone [facility] [address] [place] [phone] Naz Tejeda APRN [address] [place] [address] HENRY REFILL Social History Tobacco Use Types Packs/Day Years Used Date Smoking Tobacco: Every Day Cigarettes 0.5 15 Smokeless Tobacco: Never Alcohol Use Standard Drinks/Week Comments No 0 (1 standard drink = 0.6 oz pur e alcohol) PHQ-2 Answer Date Recorded Retired PHQ-9: Brief Depression Severity Measure Score 10 10/18/2022 PHQ-2 Answer Date Recorded Retired PHQ-9: Brief Depression Severity Measure Score 10 10/18/2022 Comments No Sex and Gender Information Value Date Recorded Sex Assigned at Not on file Legal Sex Female 10:31 AM EDT Gender Identity Not on file Sexual Orientation Not on file documented as of this encounter Miscellaneous Notes * Telephone Encounter - Maria Luisa Zamora MA - 04/02/2023 2:09 PM EDT Attempted to reach pt and let her know this med was sent in on 03/28 no answer or VM setup. HUB if she calls back let her know its been sent in * Telephone Encounter - Jun Martin RegSched Rep - 04/02/2023 1:48 PM EDT Caller: Pam Mitchell Relationship: Self Best call back number: [phone] Requested Prescriptions: Requested Prescriptions Pending Prescriptions Disp Refills clopidogrel (PLAVIX) 75 MG tablet 30 tablet 2 Sig: Take 1 tablet by mouth Daily. Pharmacy where request should be sent: [address]- [phone] - [phone] FX Last office visit with prescribing clinician: 10/18/2022 Last telemedicine visit with prescribing clinician: Visit date not found Next office visit with prescribing clinician: Visit date not found Additional details provided by patient: PATIENT IS CURRENTLY OUT Does the patient have less than a 3 day supply: [x] Yes [] No Would you like a call back once the refill request has been completed: [] Yes [] No If the office needs to give you a call back, can they leave a voicemail: [] Yes [] No Frank Kirkland 04/02/23 13:49 EDT documented in this encounter Plan of Treatment Not on file documented as of this encounter Visit Diagnoses Not on filedocumented in this encounter Additional Health Concerns Infection Onset Date Last Indicated Resolved Time 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
--- OUTSIDE RECORDS SUMMARY | 2025-09-06 12:25 | XMS_ITS | Referral Summary ---
Author Organization [facility] ([place], [place], [place], [place], [place]) Address [address] [place] [address] Care Team Providers Care Magician Helper Name Role Phone Brynn Carney APRN Primary Care Provider [phone] Encounters Date Type Department Care Team Description 08/26/[address] [address] Brynn Carney APRN Appointment 08/25/2025 11:00 AM EST Office Visit [address] [phone] Brynn Carney APRN Encounter to establish care (Primary Dx); Depression screening; Need for vaccination; Primary hypertension; Muscle spasms of both lower extremities; Chronic bilateral back pain, unspecified back location; Anxiety and depression; 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); Tremors of nervous system; Colostomy present (HCC); Drug-induced constipation; H/O borderline personality disorder; Vitamin D deficiency; Diabetes mellitus screening; Thyroid disorder screen; Mixed hyperlipidemia; Restless leg syndrome; Gastroesophageal reflux disease, unspecified whether esophagitis present; Nausea; History of narcotic addiction (HCC) from Last 3 Months Allergies Active Allergy Reactions Criticality Noted Date Comments Azithromycin 10/10/2020 Other reaction(s): Unknown - High Severity Morphine Rash,Hives,Itching High 06/25/2021 Sulfa (Sulfonamide Antibiotics) Rash Low 01/07/2018 Tetracycline Hives,Rash High 06/25/2021 Tetracyclines Hives High 10/10/2020 Medications gabapentin (NEURONTIN) 800 MG tablet Take 1 tablet (800 mg total) by mouth 3 (three) times daily. 08/02/20 Active clonazePAM (KlonoPIN) 0.25 MG disintegrating tablet Take 1 tablet (0.25 mg total) by mouth. 06/29/20 25 Active amLODIPine (NORVASC) 10 MG tabletIndications :Primary hypertension Take 1 tablet (10 mg total) by mouth daily. 90 tablet 1 08/25/20 25 Active cyclobenzaprine (AMRIX) 15 MG 24 hr capsuleIndication s:Muscle spasms of both lower extremities Take 1 capsule (15 mg total) by mouth daily as needed for muscle spasms. 30 capsule 11 08/25/20 25 Active escitalopram (LEXAPRO) 5 MG tabletIndications :Anxiety and depression Take 1 tablet (5 mg total) by mouth daily for 7 days, THEN 2 tablets (10 mg total) daily for 53 days. 60 tablet 1 08/25/20 25 026 Active aspirin 81 MG EC tabletIndications :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) Take 1 tablet (81 mg total) by mouth daily. 90 tablet 3 08/25/20 25 Active atorvastatin (LIPITOR) 40 MG tabletIndications :Mixed hyperlipidemia Take 1 tablet (40 mg total) by mouth daily. 90 tablet 3 08/25/20 25 Active clopidogreL (PLAVIX) 75 mg tabletIndications :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) Take 1 tablet (75 mg total) by mouth daily. 90 tablet 3 08/25/20 25 Active lamoTRIgine (LaMICtal) 25 MG tabletIndications :H/O borderline personality disorder Take 1 tablet (25 mg total) by mouth daily. 90 tablet 3 08/25/20 25 Active lisinopriL (ZESTRIL) 40 MG tabletIndications :Primary hypertension Take 1 tablet (40 mg total) by mouth daily. 90 tablet 3 08/25/20 25 Active ondansetron (ZOFRAN) 4 MG tabletIndications :Nausea Take 1 tablet (4 mg total) by mouth 3 (three) times daily as needed for nausea. 30 tablet 11 08/25/20 25 Active pantoprazole (PROTONIX) 40 MG tabletIndications :Gastroesophageal reflux disease, unspecified whether esophagitis present Take 1 tablet (40 mg total) by mouth daily. 90 tablet 3 08/25/20 25 Active primidone (MYSOLINE) 50 MG tabletIndications :Tremors of nervous system Take 1 tablet (50 mg total) by mouth 2 (two) times daily. 180 tablet 3 08/25/20 25 Active QUEtiapine (SEROquel) 25 MG tabletIndications :H/O borderline personality disorder Take 1 tablet (25 mg total) by mouth nightly. 90 tablet 3 08/25/20 25 Active rOPINIRole (REQUIP) 0.25 MG tabletIndications :Tremors of nervous system,Restless leg syndrome Take 1 tablet (0.25 mg total) by mouth daily. 90 tablet 3 08/25/20 25 Active famotidine (PEPCID) 20 MG tablet Take 20 mg by mouth 2 (two) times daily. 08/05/20 22 Discontinued lamoTRIgine (LaMICtal) 25 MG tablet Take 1 tablet (25 mg total) by mouth daily. 04/16/20 23 Discontinued(Re order) aspirin 81 MG EC tablet Take 1 tablet (81 mg total) by mouth daily. Discontinued(Re order) buprenorphine-nal oxone (SUBOXONE) 8-[address] 2 tablets under the tongue daily. Max Daily Amount: 2 tablets Discontinued buPROPion (WELLBUTRIN XL) 150 MG 24 hr tablet Take 1 tablet (150 mg total) by mouth daily. Discontinued gabapentin (NEURONTIN) 300 MG capsule Take 1 capsule (300 mg total) by mouth 2 (two) times daily. Max Daily Amount: 600 mg Discontinued(Fo rmulary change) nicotine (NICODERM CQ) 21 mg/[address] 1 patch onto the skin daily. Discontinued ondansetron (ZOFRAN) 4 MG tablet Take 1 tablet (4 mg total) by mouth 3 (three) times daily as needed for Nausea. Discontinued(Re order) pantoprazole (PROTONIX) 40 MG tablet Take 1 tablet (40 mg total) by mouth daily. 08/01/20 Discontinued(Re order) baclofen (LIORESAL) 10 MG tablet Take 1 tablet (10 mg total) by mouth 2 (two) times daily. 08/02/20 Discontinued primidone (MYSOLINE) 50 MG tablet Take 1 tablet (50 mg total) by mouth 2 (two) times daily. Discontinued(Re order) QUEtiapine (SEROquel) 25 MG tablet Take 1 tablet (25 mg total) by mouth. 07/02/20 Discontinued(Re order) rOPINIRole (REQUIP) 0.25 MG tablet Take 1 tablet (0.25 mg total) by mouth daily. 08/02/20 Discontinued(Re order) amLODIPine (NORVASC) 5 MG tablet Take 1 tablet (5 mg total) by mouth 2 (two) times daily. 08/01/20 Discontinued(Re order) clopidogreL (PLAVIX) 75 mg tablet Take 1 tablet (75 mg total) by mouth daily. 08/02/20 Discontinued(Re order) lisinopriL (ZESTRIL) 40 MG tablet Take 1 tablet (40 mg total) by mouth daily. 07/20/20 Discontinued(Re order) atorvastatin (LIPITOR) 40 MG tablet Take 1 tablet (40 mg total) by mouth daily. 05/25/20 Discontinued(Re order) Active Problems Problem Noted Date Diagnosed Date Arthritis 08/25/2025 DDD (degenerative disc disease), lumbar 08/25/20 Frozen shoulder 08/25/2025 Insomnia 08/25/2025 History of narcotic addiction 08/25/2025 Nausea 08/25/2025 Gastroesophageal reflux dise ase, unspecified whether esophagitis present 08/25/2025 Restless leg syndrome 08/25/2025 Vitamin D deficiency 08/25/2025 H/O borderline personality disorder 08/25/2025 Drug-induced constipation 08/25/2025 Colostomy present 08/25/2025 Tremors of nervous system 08/25/2025 Anxiety and depression 08/25/2025 Chronic bilateral back pain, unspecified back lo cation 08/25/2025 Muscle spasms of both lower extremities 08/25/20 Suspected cerebrovascular accident (CVA) 023 Neuropathy 11/18/2022 Bipolar disorder, current episode mixed, moderat e 10/22/2022 ICAO (internal carotid artery occlusion), right 10/10/2020 Tobacco abuse 10/10/2020 Cerebrovascular accident (CVA) 10/10/2020 Essential hypertension 09/22/2019 Hyperlipidemia History of CVA (cerebrovascular accident) Bipolar 2 disorder Resolved Problems Problem Noted Date Diagnosed Date Resolved Date Acute CVA (cerebrovascular accident) 04/20/2023 08/25/2025 Immunizations Immunization Administration Dates Next Due Covid-19 Vaccine 18yr+ (Fabio)([id number]) 12/17/2021 INFLUENZA(FLULAVAL,FLUZONE,F LUARIX)_0 .5mL(6MOS+)TRI(RAR248) 08/25/2025 Influenza Four-qiv Pf 08/31/2022, 022,07/17/2018,2016 Pneumococcal Conjugate Vacci ne (20-Valent) IM 01/28/2022 Tdap 10/10/2022 Social History Tobacco Use Types Packs/Day Years Used Date Smoking Tobacco: Every Day Cigarettes Smokeless Tobacco: Never Alcohol Use Standard Drinks/Week Comments Not Currently 0 (1 standard drink = 0.6 oz pur e alcohol) [facility] - Mental Health Answer Date Recorde d [...] Date Otoniel rded Speak language other than Niuean at home Not on file 10/24/2023 Want [...] F) 08/25/2025 11:04 AM EST Respiratory Rate 18 04/22/2023 8:42 AM EDT Oxygen Saturation 98% 08/25/2025 11:04 AM EST Inhaled Oxygen Concentration - - Weight 71.5 kg (157 lb 9.6 oz) 08/25/2025 11:04 AM EST Height 170.2 cm (5' 7 ) 08/25/2025 11:04 AM EST Body Mass Index 24.68 08/25/2025 11:04 AM EST Functional Status * Are you deaf or [...] Yes 04/22/2023 11:55 AM Rodriguez Momin RN Mental Status * Because of a physical, mental, or emotional condition, do you have serious difficulty concentrating, remembering, or making decisions? (5 years old or older) Answer Entry Date Author Yes 04/22/2023 11:55 AM Rodriguez Momin RN Plan of Treatment Upcoming Encounters Date Type Department Care Team (Late st Contact Info) Description 09/26/2025 2:30 PM EST Office Visit [address] [place] [address] Brynn Carney, SENIOR SALES ADMINISTRATOR [address] [place] [address] Procedures Procedure Name Priority Date/Time Associated Diagnosis Comments VITAMIN D, 25-HYDROXY Routine 08/25/2025 12:20 PM EST Vitamin D deficiency LIPID PANEL Routine 08/25/2025 12:20 PM EST Mixed hyperlipidemia COMPREHENSIVE METABOLIC PANEL Routine 08/25/2025 12:20 PM EST Primary hypertension CBC W/PLT COUNT & AUTO DIFFERENTIAL Routine 08/25/2025 12:20 PM EST Primary hypertension TSH Routine 08/25/2025 12:20 PM EST Thyroid disorder screen T4, FREE Routine 08/25/2025 12:20 PM EST Thyroid disorder screen HEMOGLOBIN A1C Routine 08/25/2025 12:20 PM EST Diabetes mellitus screening from Last 3 Months Results * (ABNORMAL) Vitamin D, 25-Hydroxy (08/25/2025 12:20 PM EST) Vitamin D, 25-Hydroxy 23.5(L) 30.0 - 100.0 ng/mL [facility] Comment: Vitamin D deficiency has been defined by the [place] of [employer] and an Endocrine Society practice guideline as a level of serum 25-OH vitamin D less than 20 ng/mL (1,2). The Endocrine Society went on to further define vitamin D insufficiency as a level between 21 and 29 ng/mL (2). 1. IOM ([place] of [employer]). 2010. Dietary reference intakes for calcium and D. [place]: The National Academies Press. 2. Liban SAINZ, Freddie FLEMING, Francia CASTILLO, et al. Evaluation, treatment, and prevention of vitamin D deficiency: an Endocrine Society clinical practice guideline. JCEM. 2010; 96(7):1911-30. Blood 08/25/2025 12:2 0 PM EST 08/25/2025 Narrative [facility] - 08/26/2025 7:07 AM EST Performed at: 01 - [facility] [address] [id number] Clay Roaster: Cedric Coughlin PhD, Phone: [phone] us Brynn Rommel SENIOR SALES ADMINISTRATOR LAB BLOOD ORDERABLES Final Re sult [facility] [...] - 08/26/2025 7:07 AM EST Performed at: [address] [place] [id number] Clay Roaster: Cedric Coughlin PhD, Phone: [phone] us Brynn Carney APRN LAB BLOOD ORDERABLES Final Re sult Performing Organization Address [facility] de Phone Number [facility] * TSH (08/25/2025 12:20 PM EST) TSH 0.726 0.450 - 4.500 uIU/mL [facility] Blood 08/25/2025 12:2 0 PM EST 08/25/2025 Narrative [facility] - 08/26/2025 7:07 AM EST Performed at: [address] [place] [id number] Clay Roaster: Cedric Coughlin PhD, Phone: [phone] us Brynn Carney APRN LAB BLOOD ORDERABLES Final Re sult Performing Organization Address [facility] de Phone Number [facility] * T4, free (08/25/2025 12:20 PM EST) T4,Free(Direct) 1.46 0.82 - 1.77 ng/dL [facility] Thyroxine (T4) 10.1 4.5 - 12.0 ug/dL [facility] Blood 08/25/2025 12:2 0 PM EST 08/25/2025 Narrative [facility] - 08/26/2025 7:07 AM EST Performed at: [address] [place] [id number] Clay Roaster: Cedric Coughlin PhD, Phone: [phone] us Brynn Carney APRN LAB BLOOD ORDERABLES Final Re sult Performing Organization Address [facility] Co de Phone Number [facility] * Hemoglobin A1c (08/25/2025 12:20 PM EST) Pathologist [facility] Hemoglobin A1c 5.3 4.8 - 5.6 % [facility] Comment: Prediabetes: 5.7 - 6.4 Diabetes: >6.4 Glycemic control for adults with diabetes: <7.0 Blood 08/25/2025 12:2 0 PM EST 08/25/2025 Narrative [facility] - 08/26/2025 7:07 AM EST Performed at: 01 - [facility] [id number] Clay Roaster: Cedric Coughlin PhD, Phone: [phone] Brynn Carney APRN LAB BLOOD ORDERABLES Final Re sult Performing Organization Address [facility] de Phone Number [facility] * Lipid panel (08/25/2025 12:20 PM EST) Pathologist [facility] Cholesterol, Total 176 100 - 199 mg/dL [facility] Triglycerides 90 0 - 149 mg/dL [facility] HDL Cholesterol 65 >39 mg/dL [facility] VLDL Cholesterol Oliver 16 5 - 40 mg/dL [facility] LDL Calculated 95 0 - 99 mg/dL [facility] Blood 08/25/2025 12:2 0 PM EST 08/25/2025 Narrative [facility] - 08/26/2025 7:07 AM EST Performed at: - [facility] [id number] Clay Roaster: Cedric Coughlin PhD, Phone: [phone] Brynn Carney APRN LAB BLOOD ORDERABLES Final Re sult Performing Organization Address [facility] Co de Phone Number [facility] * Comprehensive metabolic panel (08/25/2025 12:20 [...] AM EST Performed at: 01 - [facility] [address] [id number] Clay Roaster: Cedric Coughlin PhD, Phone: [phone] us Brynn Carney SENIOR SALES ADMINISTRATOR LAB BLOOD ORDERABLES Final Re sult [facility] from Last [address] [facility] Advance Directives For more information, please contact: [phone] * Full Code (Latest Code Status on File) Date Activated Date Inactivated Comments 04/18/2023 3:04 AM 04/22/2023 3:34 PM -Attempt Res uscitation if person has no pulse and is not breathing. -If no pulse or not breathing attempt CPR/CODE. -Call Rapid Response if patient is in distress. Care Teams Magician Helper Relationship Specialty Start Date End Date Brynn Carney, SENIOR SALES ADMINISTRATOR [address] [place] [phone] PCP - General Primary Care 08/25/25
--- OUTSIDE RECORDS SUMMARY | 2025-09-06 12:25 | XMS_ITS | Clinical Summary ---
Author Organization [employer] ([place], [place], [place], [place], [place]) Address [address] [place] [address] Care Team Providers Care Wind Field Service Manager Name Role Phone Brynn Carney APRN Primary Care Provider [phone] Allergies Active Allergy Reactions Criticality Noted Date Comments Azithromycin 10/10/2020 Other reaction(s): Unknown - High Severity Morphine Rash,Hives,Itching High 06/25/2021 Sulfa (Sulfonamide Antibiotics) Rash Low 01/07/2018 Tetracycline Hives,Rash High 06/25/2021 Tetracyclines Hives High 10/10/2020 Medications gabapentin (NEURONTIN) 800 MG tablet Take 1 tablet (800 mg total) by mouth 3 (three) times daily. 08/02/20 25 Active clonazePAM (KlonoPIN) 0.25 MG disintegrating tablet [...] mouth 2 (two) times daily. 08/05/20 22 11/20/2 025 Discontinued lamoTRIgine (LaMICtal) 25 MG tablet Take 1 tablet (25 mg total) by mouth daily. 04/16/20 Discontinued(Re order) aspirin 81 MG EC tablet [...] (75 mg total) by mouth daily. 08/02/20 025 Discontinued(Re order) lisinopriL (ZESTRIL) 40 MG tablet Take 1 tablet (40 mg total) by mouth daily. 07/20/20 025 Discontinued(Re order) atorvastatin (LIPITOR) 40 MG tablet Take 1 tablet (40 mg total) by mouth daily. 05/25/20 025 Discontinued(Re order) Active Problems Problem Noted Date [...] Date Acute CVA (cerebrovascular accident) 04/20/2023 08/25/2025 Encounters Date Type Department Care Team Description 08/26/[address] [address] Brynn Carney APRN Appointment 08/25/2025 11:00 AM EST Office Visit [address] [address] Brynn Carney APRN Encounter to [...] esophagitis present; Nausea; History of narcotic addiction ([facility]) from Last 3 Months Immunizations Immunization Administration Dates Next Due Covid-19 Vaccine 18yr+ (Fabio)(AFJ852) 12/17/2021 INFLUENZA(FLULAVAL,FLUZONE,F LUARIX)_0 .5mL(6MOS+)TRI([id number]) 08/25/2025 Influenza Four-qiv Pf 08/31/2022, 022,07/17/2018,2016 Pneumococcal Conjugate Vacci ne (20-Valent) IM 01/28/2022 Tdap 10/10/2022 Social History Tobacco Use Types Packs/Day Years Used Date Smoking Tobacco: Every Day Cigarettes Smokeless Tobacco: Never Alcohol Use Standard Drinks/Week Comments Not Currently 0 (1 standard drink = 0.6 oz pur e alcohol) [facility] - Mental Health Answer Date Recorde [...] Date Otoniel rded Speak language other than Cuban at home Not on file 10/24/2023 Want [...] Mass Index 24.68 08/25/2025 11:04 AM EST Plan of Treatment Upcoming Encounters Date Type Department Care Team (Late st Contact Info) Description 09/26/2025 2:30 PM EST Office Visit [facility] Primary Care [address] [address] Brynn Carney, NELIDA [address] [place] [id number] Health Maintenance Due Date Last Done Comments CT Colonography 1961 Colonoscopy 1961 Colorectal Cancer Screening 1961 FOBT/FIT 1961 Fit-DNA (Cologuard) 1961 Sigmoidoscopy 1961 HIV Screening 02/27/1976 Hepatitis C Screening 1979 Pap Smear 1982 Breast Cancer Screening 2001 Shingles Vaccine (Zoster) (1 of 2) 2011 Tobacco Cessation Counseling and Screening (12+) 04/18/2024 04/18/2023 COVID-19 VACCINE ( season) 2025, 01/26/2021 Lipid Panel 08/25/2028 08/25/2025, 07/1 02/2023, 10/11/2020 DTAP/TDAP/TD VACCINES (2 - T d or Tdap) 10/10/2032 10/10/2022 Respiratory Syncytial Virus (RSV) Adult or (1 - 1-dose 75+ series) 02/27/2036 Pneumococcal 50+ years Completed 01/28/2022 Influenza Vaccine Completed 08/25/2025 Procedures Procedure Name Priority Date/Time Associated Diagnosis [...] D deficiency has been defined by the [place] of [employer] and an Endocrine Society practice guideline as a level of serum 25-OH vitamin D less than 20 ng/mL (1,2). The Endocrine Society went on to further define vitamin D insufficiency as a level between 21 and 29 ng/mL (2). 1. IOM ([place] of [employer]). 2010. Dietary reference intakes for calcium and D. [place]: The National Academies Press. 2. Liban MF, Freddie FLEMING, Francia CASTILLO, et al. Evaluation, treatment, and prevention of vitamin D deficiency: an Endocrine Society clinical practice guideline. JCEM. 2010; 96(7):1911-30. Blood 08/25/2025 12:2 0 PM EST 08/25/2025 Narrative [facility] - 08/26/2025 7:07 AM EST Performed at: 01 - [facility] [id number] Patented Hogshead Assembler: Cedric Coughlin PhD, Phone: [phone] us Brynn Giraldohanhchandu DRIP PUMPER LAB BLOOD ORDERABLES Final Re sult [facility] [...] - 08/26/2025 7:07 AM EST Performed at: [address] [place] [id number] Patented Hogshead Assembler: Cedric Coughlin PhD, Phone: [phone] us Brynn Darmhanhi DRIP PUMPER LAB BLOOD ORDERABLES Final Re sult Performing Organization Address City/[facility] de Phone Number [facility] * TSH (08/25/2025 12:20 PM EST) TSH 0.726 0.450 - 4.500 uIU/mL [facility] Blood 08/25/2025 12:2 0 PM EST 08/25/2025 Narrative [facility] - 08/26/2025 7:07 AM EST Performed at: [address] [id number] Patented Hogshead Assembler: Cedric Coughlin PhD, Phone: [phone] us Brynn Carney DRIP PUMPER LAB BLOOD ORDERABLES Final Re sult Performing Organization Address [facility] de Phone Number [facility] * T4, free (08/25/2025 12:20 PM EST) T4,Free(Direct) 1.46 0.82 - 1.77 ng/dL [facility] Thyroxine (T4) 10.1 4.5 - 12.0 ug/dL [facility] Blood 08/25/2025 12:2 0 PM EST 08/25/2025 Narrative [facility] - 08/26/2025 7:07 AM EST Performed at: [address] [place] [id number] Patented Hogshead Assembler: Cedric Coughlin PhD, Phone: [phone] us Brynn Carney DRIP PUMPER LAB BLOOD ORDERABLES Final Re sult Performing Organization Address [facility] Co de Phone Number [facility] * Hemoglobin A1c (08/25/2025 12:20 PM EST) Hemoglobin A1c 5.3 4.8 - 5.6 % [facility] Comment: Prediabetes: 5.7 - 6.4 Diabetes: >6.4 Glycemic control for adults with diabetes: <7.0 Blood 08/25/2025 12:2 0 PM EST 08/25/2025 Narrative [facility] - 08/26/2025 7:07 AM EST Performed at: - [facility] [id number] Patented Hogshead Assembler: Cedric Coughlin PhD, Phone: [phone] Brynn Canrey APRN LAB BLOOD ORDERABLES Final Re sult Performing Organization Address [facility] Co de Phone Number [facility] * Lipid panel [...] 08/26/2025 7:07 AM EST Performed at: - [facility] [id number] Patented Hogshead Assembler: Cedric Coughlin PhD, Phone: [phone] us Brynn Carney APRN LAB BLOOD ORDERABLES Final Re sult Performing Organization Address [facility]/ZIP Co de Phone Number [facility] * Comprehensive [...] AM EST Performed at: 01 - [facility] [address] [id number] Patented Hogshead Assembler: Cedric Coughlin PhD, Phone: [phone] us Brynn Carney DRIP PUMPER LAB BLOOD ORDERABLES Final Re sult [facility] from Last 3 Months Insurance [facility] Advance Directives For more information, please contact: [phone] * Full Code (Latest Code Status on File) Date Activated Date Inactivated Comments 04/18/2023 3:04 AM 04/22/2023 3:34 PM -Attempt Res uscitation if person has no pulse and is not breathing. -If no pulse or not breathing attempt CPR/CODE. -Call Rapid Response if patient is in distress. Care Teams Wind Field Service Manager Relationship Specialty Start Date End Date Brynn Carney, DRIP PUMPER [address] [place] [id number] PCP - General Primary Care 08/25/25
--- OUTSIDE RECORDS SUMMARY | 2025-09-06 12:25 | XMS_ITS | Encounter Summary ---
[facility] Address [address] [place] [address] Care Team Providers Care Inter Com Installer Name Role Phone Kavon Chi MD Primary Care Provider [phone] Reason for Visit * Reason Comments Med Refill Encounter Details Date Type Department Care Team (Late st Contact Info) Description 12/05/2022 Refill [facility] [address] [place] [address] Pierre Vasquez MD [address] [place] [address] Social History Tobacco Use Types Packs/Day Years [...] on file documented as of this encounter Plan of [...] documented as of this encounter Care Teams Inter Com Installer Relationship Specialty Start Date End Date Kavon Chi MD [address] [facility] [address] ATTN: [place] [address] PCP - General Emergency Medicine 04/26/23 documented as of this encounter
== END 2025-09-05 23:59 | disposition home or self-care (01) ==
LOC: LAB.DROPOF 09-06 12:19
PROVIDERS: PCP Student in an Organized Health Care Education/Training Program; Visit Provider Student in an Organized Health Care Education/Training Program
DX: I10 Essential (primary) hypertension (principal); Z79.899 Other long term (current) drug therapy; Z86.73 Personal history of transient ischemic attack (TIA), and cerebral infarction without residual deficits
CPT/HCPCS: 80053; 80061; 84439; 84443; 85025